=== PATIENT | male | born 1960 | race Caucasian/White ===

== ENCOUNTER 2020-06-06 15:08 | Inpatient (IN) ==
[2020-06-06] MEDS ORDERED: Naloxone 0.4 MG/ML INJ IVP PRN (17:42)
[2020-06-06] MEDS ORDERED: Ondansetron ODT 4 MG TAB.RAPDIS SL PRN (17:42)
[2020-06-06] MEDS: Ipratropium 1 PUFF INHALER IH SCH ×2 (19:49→23:39)
[2020-06-07] MEDS: *HR* Heparin 5,000 UNIT/ML VIAL SQ SCH ×5 (00:09→19:35)
[2020-06-07 01:52] LABS: Basophils % 0.3 %; Eosinophils % 0.3 %; Hematocrit 38.7 % (37.5-50.1); Immature Granulocytes % 0.3 % (0-4); Lymphocytes % 33.7 %; Mean Corpuscular HGB Conc 33.6 g/dL (31.6-35.5); Mean Corpuscular Hemoglobin 30.6 pg (28.0-33.3); Mean Corpuscular Volume 91.1 fL (83.0-100.0); Mean Platelet Volume 10.2 fL (9.4-12.4); Monocytes # 0.3 K/mcL (0.0-1.3); Monocytes % 8.9 %; Neutrophils # 1.7 K/mcL (1.6-8.9); Platelet Count 223 K/mcL (140-400); Red Blood Count 4.25 M/mcL (4.19-5.50); Red Cell Distribution Width 12.4 % (11.5-14.5); Segmented Neutrophils % 56.5 %
[2020-06-07 02:05] LABS: BUN/Creatinine Ratio 25 (6-26); Blood Urea Nitrogen 15 mg/dL (8-23); Carbon Dioxide 25 mEq/L (23-29); Chloride 101 mEq/L (98-107); Potassium 4.3 mEq/L (3.5-5.1); Sodium 134 mEq/L (136-145); eGFR For African Americans > 60 (> 60)
[2020-06-07 02:06] LABS: Alanine Aminotransferase 56 Units/L (7-52); Albumin 3.3 g/dL (3.5-5.7); Alkaline Phosphatase 111 Units/L (34-104); Aspartate Amino Transferase 46 Units/L (13-39); Bilirubin,Total 0.3 mg/dL (0.3-1.0); Calcium 8.3 mg/dL (8.6-10.3); Globulin 3.4 g/dL (2.4-3.5); Glucose 112 mg/dL (70-105); Osmolality,Calculated 280 (280-300); Total Protein 6.7 g/dL (6.4-8.9); eGFR For Non-African Americans > 60 (> 60)
[2020-06-07 02:29] LABS: Platelet Estimate Normal (Normal); Reactive Lymphocytes Present (Not Present)
[2020-06-07] MEDS: Ipratropium 1 PUFF INHALER IH SCH ×6 (03:45→23:43)
[2020-06-07] MEDS ORDERED: Isovue-370 500 ML BOTTLE IVP ONE (05:44)
[2020-06-07] MEDS ORDERED: Nitroglycerin 0.4 MG TAB.SUBL SL PRN (05:45)
[2020-06-07] MEDS: Dexamethasone 4 MG/ML VIAL IVP SCH (08:54)
[2020-06-07] MEDS ORDERED: Azithromycin 500 MG in 0.9 % Sodium Chloride 250 ML IVPB SCH (09:00)
[2020-06-07] MEDS ORDERED: cefTRIAXone 1,000 MG in Water for inj. (sterile) 10 ML IVP SCH (09:00)
[2020-06-07] MEDS ORDERED: Furosemide 20 MG/2 ML VIAL IVP ONE (09:31)
[2020-06-07] MEDS ORDERED: 0.9 % Sodium Chloride 250 ML ONE (19:31)
[2020-06-07] MEDS: Melatonin 3 MG TABLET PO SCH (19:35)
[2020-06-08] MEDS: Ipratropium 1 PUFF INHALER IH SCH ×6 (03:35→23:18)
[2020-06-08 06:42] LABS: Hematocrit 36.1 % (37.5-50.1); Hemoglobin 12.5 g/dL (12.9-16.9); Mean Corpuscular HGB Conc 34.6 g/dL (31.6-35.5); Mean Corpuscular Hemoglobin 30.8 pg (28.0-33.3); Mean Corpuscular Volume 88.9 fL (83.0-100.0); Mean Platelet Volume 9.3 fL (9.4-12.4); Platelet Count 252 K/mcL (140-400); Red Blood Count 4.06 M/mcL (4.19-5.50); Red Cell Distribution Width 12.6 % (11.5-14.5)
[2020-06-08 06:43] LABS: White Blood Count 5.5 K/mcL (4.3-11.1)
[2020-06-08 07:01] LABS: BUN/Creatinine Ratio 31 (6-26); Blood Urea Nitrogen 14 mg/dL (8-23); Calcium 8.4 mg/dL (8.6-10.3); Carbon Dioxide 26 mEq/L (23-29); Chloride 102 mEq/L (98-107); Glucose 115 mg/dL (70-105); Osmolality,Calculated 283 (280-300); Potassium 3.7 mEq/L (3.5-5.1); Sodium 136 mEq/L (136-145); eGFR For African Americans > 60 (> 60); eGFR For Non-African Americans > 60 (> 60)
[2020-06-08] MEDS: *HR* Heparin 5,000 UNIT/ML VIAL SQ SCH (10:17)
[2020-06-08] MEDS: Furosemide 20 MG/2 ML VIAL IVP SCH ×2 (10:22→22:03)
[2020-06-08] MEDS: Dexamethasone 4 MG/ML VIAL IVP SCH (10:22)
[2020-06-08] MEDS ORDERED: 0.9 % Sodium Chloride 250 ML ONE (19:00)
[2020-06-08] MEDS: Benzonatate 100 MG CAPSULE PO PRN (22:03)
[2020-06-08] MEDS: Melatonin 3 MG TABLET PO SCH (22:04)
[2020-06-09] MEDS: Ipratropium 1 PUFF INHALER IH SCH ×5 (04:01→19:32)
[2020-06-09 04:03] LABS: Acinetobacter baumannii by PCR Not Detected (Not Detect); Candida albicans by PCR Not Detected (Not Detect); Candida glabrata by PCR Not Detected (Not Detect); Candida krusei by PCR Not Detected (Not Detect); Candida parapsilosis by PCR Not Detected (Not Detect); Candida tropicalis by PCR Not Detected (Not Detect); Enterobacter cloacae Cmplx PCR Not Detected (Not Detect); Enterobacteriaceae by PCR Not Detected (Not Detect); Enterococcus by PCR Not Detected (Not Detect); Escherichia coli by PCR Not Detected (Not Detect); Klebsiella oxytoca by PCR Not Detected (Not Detect); Klebsiella pneumoniae by PCR Not Detected (Not Detect); Proteus by PCR Not Detected (Not Detect); Pseudomonas aeruginosa by PCR Not Detected (Not Detect); Serratia marcescens by PCR Not Detected (Not Detect); Staphylococcus aureus by PCR Not Detected (Not Detect); Staphylococcus by PCR Not Detected (Not Detect); Streptococcus agalactiae(B)PCR Not Detected (Not Detect); Streptococcus by PCR Not Detected (Not Detect); Streptococcus pneumoniae PCR Not Detected (Not Detect); Streptococcus pyogenes (A) PCR Not Detected (Not Detect)
[2020-06-09] MEDS: *HR* Enoxaparin 40 MG/0.4 ML SYRINGE SQ SCH (05:47)
[2020-06-09] MEDS: Furosemide 20 MG/2 ML VIAL IVP SCH ×2 (08:00→21:26)
[2020-06-09] MEDS: Dexamethasone 4 MG/ML VIAL IVP SCH (08:03)
[2020-06-09 09:28] LABS: Hematocrit 38.8 % (37.5-50.1); Hemoglobin 13.4 g/dL (12.9-16.9); Mean Corpuscular HGB Conc 34.5 g/dL (31.6-35.5); Mean Corpuscular Hemoglobin 30.4 pg (28.0-33.3); Mean Platelet Volume 9.4 fL (9.4-12.4); Platelet Count 325 K/mcL (140-400); Red Blood Count 4.41 M/mcL (4.19-5.50); Red Cell Distribution Width 12.6 % (11.5-14.5); White Blood Count 4.8 K/mcL (4.3-11.1)
[2020-06-09 09:48] LABS: BUN/Creatinine Ratio 27 (6-26); Blood Urea Nitrogen 14 mg/dL (8-23); Calcium 8.8 mg/dL (8.6-10.3); Carbon Dioxide 25 mEq/L (23-29); Chloride 97 mEq/L (98-107); Glucose 142 mg/dL (70-105); Osmolality,Calculated 281 (280-300); Potassium 3.4 mEq/L (3.5-5.1); Sodium 134 mEq/L (136-145); eGFR For African Americans > 60 (> 60); eGFR For Non-African Americans > 60 (> 60)
[2020-06-09] MEDS: Benzonatate 100 MG CAPSULE PO PRN (19:35)
[2020-06-09] MEDS: Melatonin 3 MG TABLET PO SCH (21:26)
[2020-06-09] MEDS ORDERED: 0.9 % Sodium Chloride 250 ML ONE (22:10)
[2020-06-10] MEDS: Ipratropium 1 PUFF INHALER IH SCH ×5 (00:14→15:40)
[2020-06-10] MEDS: *HR* Enoxaparin 40 MG/0.4 ML SYRINGE SQ SCH (05:38)
[2020-06-10 05:48] LABS: Hematocrit 34.3 % (37.5-50.1); Mean Corpuscular HGB Conc 33.2 g/dL (31.6-35.5); Mean Corpuscular Hemoglobin 29.8 pg (28.0-33.3); Mean Corpuscular Volume 89.6 fL (83.0-100.0); Mean Platelet Volume 9.5 fL (9.4-12.4); Platelet Count 311 K/mcL (140-400); Red Blood Count 3.83 M/mcL (4.19-5.50); Red Cell Distribution Width 12.6 % (11.5-14.5); White Blood Count 5.5 K/mcL (4.3-11.1)
[2020-06-10 05:49] LABS: Hemoglobin 11.4 g/dL (12.9-16.9)
[2020-06-10 06:21] LABS: Alanine Aminotransferase 58 Units/L (7-52); Albumin 3.3 g/dL (3.5-5.7); Albumin/Globulin Ratio 0.9 (1.1-2.2); Alkaline Phosphatase 98 Units/L (34-104); Aspartate Amino Transferase 39 Units/L (13-39); BUN/Creatinine Ratio 28 (6-26); Bilirubin,Total 0.4 mg/dL (0.3-1.0); Blood Urea Nitrogen 14 mg/dL (8-23); Calcium 8.8 mg/dL (8.6-10.3); Carbon Dioxide 27 mEq/L (23-29); Chloride 98 mEq/L (98-107); Globulin 3.5 g/dL (2.4-3.5); Glucose 115 mg/dL (70-105); Lactate Dehydrogenase 230 Units/L (140-271); Osmolality,Calculated 279 (280-300); Potassium 3.8 mEq/L (3.5-5.1); Sodium 134 mEq/L (136-145); Total Protein 6.8 g/dL (6.4-8.9); eGFR For African Americans > 60 (> 60); eGFR For Non-African Americans > 60 (> 60)
[2020-06-10 06:28] LABS: Ferritin 391 ng/mL (20-250)
[2020-06-10] MEDS: Furosemide 20 MG/2 ML VIAL IVP SCH (07:34)
[2020-06-10] MEDS: Dexamethasone 4 MG/ML VIAL IVP SCH (07:35)
[2020-06-10 08:37] LABS: C-Reactive Protein 125 mg/L (Less than 10)
[2020-06-10 11:17] VITALS: BP 135/101
== END 2020-06-10 15:48 | disposition home health service (06) | DRG 137 ==
LOC: 2NENU → SUATTDRO 06-08 14:49
PROVIDERS: ADMIT Student in an Organized Health Care Education/Training Program; ATTEND Internal Medicine